=== PATIENT | male | born 1950 | race Caucasian/White ===

== ENCOUNTER → 2024-04-24 | Outpatient (CLI) | payer MEDICARE, OTHER, SELFPAY ==
--- NOTE | 2024-04-24 09:45 | DI.ECHO.S_ITS ---
[facility]+ [facility] : : [address] : : [place] : : [id number] : : Phone: [phone] Echocardiogram Report + + :Name: JEAN NICHOLAS Study Date: 04/24/2024 Height: 74 in : :Hospital ReadingLocation: Weight: 302 lb : : Gender: Male BSA: 2.6 m2 : :: 1950 Age: 73 yrs BP: 120/53 mmHg: :Reason For Study: HYPERTENSION : :Ordering Physician: MAXIM, : :MARY Performed By: Polly Torre : :Referring: MARY LAUGHLIN : + + Interpretation Summary 1) Normal left ventricular thickness, size, wall motion, and systolic function (EF 60-65%). 2) Mildly enlarged right ventricle with normal function. 3) No significant valvular abnormalities. 4) No prior Echo available for comparison. Procedure: A two-dimensional transthoracic echocardiogram with color flow and Doppler was performed. The study quality was technically difficult. There is no prior echocardiogram noted for this patient. A contrast injection of Definity was performed to improve assessment of LV function. The patient was in sinus bradycardia with heart rates between 54-67 bpm during the exam. Left Ventricle: The left ventricle is normal in size and wall thickness. The ejection fraction is estimated to be 60-65%. Left ventricular systolic function appears normal without focal wall motion abnormalities. Diastolic parameters suggest a relaxation abnormality of the left ventricle, consistent with probable normal filling pressures. Right Ventricle: The right ventricle is mildly dilated. The right ventricular systolic function is normal. Atria: The left atrial size is normal. Right atrial size is normal. There is no Doppler evidence for an interatrial shunt. Mitral Valve: The mitral valve is normal in structure and function. There is trace mitral regurgitation. Aortic Valve: The aortic valve is trileaflet. The aortic valve opens well. The aortic valve is slightly calcified. There is no aortic valve stenosis. No aortic regurgitation is present. Tricuspid Valve: The tricuspid valve is normal in structure and function. There is a trace or physiologic amount of tricuspid regurgitation. Pulmonary artery pressures cannot be estimated because of the lack of a measurable TR jet velocity. Pulmonic Valve: The pulmonic valve is not well visualized. There is no pulmonic valvular regurgitation. Great Vessels: The aortic root is normal size. The dimensions of the ascending aorta are normal. The IVC is of normal diameter and collapses greater than 50% with a sniff. This suggests a low right atrial pressure of 3 mm Hg. Pericardium/ Pleura There is no pericardial effusion. There is no pleural effusion. MMode/2D Measurements & Calculations LVIDd: 5.4 cm LVOT diam: 2.0 cm LVIDs: 3.4 cm Ao root diam: 3.6 cm FS: 35.9 % asc Aorta Diam: 3.7 cm IVSd: 0.97 cm Ao Arch Diam (Prox Trans): 3.5 cm LVPWd: 0.97 cm LV cabrales. diameter/BSA (cm/m^2): 2.1 LV sys. diameter/BSA (cm/m^2): 1.3 LA A2 area: 21.2 cm2 RA long axis: 4.9 cm LA A4 area: 17.8 cm2 RA area: 16.4 cm2 LA length (vol): 5.0 cm RA vol: 46.7 ml LA vol: 63.6 ml RA : 18.0 ml/m2 LA vol index: 24.6 ml/m2 IVC diam: 1.5 cm RVD1 (basal): 4.2 cm TAPSE: 2.5 cm Doppler Measurements & Calculations Ao V2 max: 150.9 cm/sec LVOT Max Phillip: 117.5 cm/sec Ao V2 mean: 113.1 cm/sec LV V1 max P.5 mmHg Ao max P.1 mmHg LV V1 VTI: 30.3 cm Ao mean P.6 mmHg LUIS CARLOS(I,D): 2.6 cm2 Ao V2 VTI: 36.1 cm LUIS CARLOS(V,D): 2.4 cm2 sev ratio: 0.84 LUIS CARLOS indexed to BSA (cm^2/m^2): 0.99 MV E max phillip: 87.1 cm/sec PA V2 max: 94.3 cm/sec MV A max phillip: 97.8 cm/sec PA V2 mean: 70.0 cm/sec MV E/A: 0.89 PA mean P.1 mmHg Med Peak E' Phillip: 10.7 cm/sec PA pr(Accel): 32.8 mmHg E/E' med: 8.2 Lat Peak E' Phillip: 9.0 cm/sec E/E' lat: 9.7 E/e' average: 8.9 MV dec time: 0.26 sec SV(LVOT): 92.7 ml Reading Physician:01:31 PM
--- NOTE | 2024-04-24 19:44 | DI.NM.S_ITS ---
DATE OF SERVICE: 04/24/2024 PROCEDURE: Exercise stress test. INDICATIONS: Bradycardia with hypertension and hyperlipidemia. CARDIAC STRESS: The patient underwent exercise stress test under the supervision of an attending staff. He walked on Nolberto protocol for 3 minutes and 47 seconds, achieved maximum heart rate of 132 which was 90% of target heart rate. Normal blood pressure response. Resting blood pressure 130/84 and peak blood pressure 182/96 mmHg. BERTO positive 47%, 4.6 METs of workload. Baseline rhythm sinus with mild sinus bradycardia as well as frequent PACs and PVCs including atrial bigeminy. During stress, suppression of PACs and PVCs without any ischemic changes. No chest pain or anginal symptoms. The patient felt dyspnea and fatigue. CONCLUSION: Exercise stress test is negative for inducible ischemia. Significantly diminished exercise tolerance. Normal blood pressure response. Achieved 90% of target heart rate. 4.6 METs of workload. BERTO positive 47%. At rest, frequent PACs as well as PVCs including atrial bigeminy. PACs and PVCs got suppressed during exercise. No anginal symptoms; however, the patient felt fatigue and dyspnea. Correlate clinically. Overall, low-risk exercise stress test. Donnie, Sathya - MELECIO/yeison/AY doc#: [id number]/job#: [id number] dd: 04/24/2024 16:53:00 dt: 04/24/2024 19:16:00 DICTATING /COPIES TO: Eunice Quintero MD COPIES MNE: XIN;
== END ==
PROVIDERS: Referring Provider Internal Medicine Cardiovascular Disease; Visit Provider Internal Medicine Cardiovascular Disease
DX: R00.1 Bradycardia, unspecified (principal); I10 Essential (primary) hypertension; E78.5 Hyperlipidemia, unspecified
CPT/HCPCS: 93017; 93306

== ENCOUNTER → 2024-12-18 08:55 | Outpatient (CLI) | payer MEDICARE, OTHER, SELFPAY ==
[2024-12-18 09:46] LABS: Add Manual Diff / Slide Review NO; Basophils Absolute Auto 0 /uL (0-100); Basophils Percent Auto 0.4 % (0-2); Eosinophils Absolute Auto 100 /uL (0-450); Eosinophils Percent Auto 0.5 % (2-4); Hematocrit 45.2 % (41-53); Hemoglobin 14.7 g/dL (13.5-17.5); Lymphocytes Absolute Auto 2000 /uL (1100-4500); Lymphocytes Percent Auto 18.2 % (25-40); Mean Corpuscular HGB Conc 32.6 % (30-36); Mean Corpuscular Hemoglobin 26.5 PG (26-34); Mean Corpuscular Volume 81.4 fL (80-100); Monocytes Absolute Auto 1000 /uL (0-900); Monocytes Percent Auto 9.3 % (3-14); Neutrophils Absolute Auto 8000 /uL (1500-7000); Neutrophils Percent Auto 71.6 % (50-75); Platelet Count 270 X10^3/uL (150-400); Red Blood Cell Count 5.56 X10^6/uL (4.5-5.9); Red Cell Distribution Width 14.1 % (11.6-14.8); White Blood Cell Count 11.1 X10^3/uL (4.5-11.0)
[2024-12-18 10:03] LABS: BUN Creatinine Ratio 21.6 (6-22); Blood Urea Nitrogen 22 mg/dL (9-20); Calcium 9.9 mg/dL (8.4-10.2); Carbon Dioxide 22 mmol/L (22-32); Chloride 103 mmol/L (98-107); Estimated Glomerular Filt Rate > 60 mL/min (>60); Glucose 105 mg/dL (80-110); HEMOLYSIS < 15 (0-50); Potassium 4.5 mmol/L (3.4-5.1); Sodium 138 mmol/L (137-145)
== END ==
PROVIDERS: PCP Hospitalist; Referring Provider Internal Medicine Cardiovascular Disease; Visit Provider Internal Medicine Cardiovascular Disease
DX: I48.0 Paroxysmal atrial fibrillation (principal)
CPT/HCPCS: 36415; 80048; 85025